=== PATIENT | female | born 1975 | race African-American/Black ===

== ENCOUNTER 2017-07-12 09:30 | Inpatient (IN) | payer OTHER ==
[2017-07-12 10:08] VITALS: BMI 47.5
[2017-07-12] MEDS: ELECTROLYTE-148 SOLN 1,000 ML IV SCH ×2 (10:30→10:52)
[2017-07-12] MEDS ORDERED: METHYLERGONOVINE MALEATE 0.2 MG/1 ML AMP IM PRN (10:36)
[2017-07-12] MEDS ORDERED: BENZOCAINE 28 GM HEMORRHOIDAL OINTMENT TP PRN (10:36)
[2017-07-12] MEDS ORDERED: WITCH HAZEL 50% (TUCKS) 40 PAD/JAR PAD TP PRN (10:36)
[2017-07-12] MEDS ORDERED: IBUPROFEN 800 MG/8 ML IJ IVPB PRN (10:36)
[2017-07-12] MEDS ORDERED: SENNOSIDES/DOCUSATE COMBO (SENNA PLUS) TABLET (UD) PO PRN (10:36)
[2017-07-12] MEDS ORDERED: BENZOCAINE 20% 57 GM BOTTLE TP PRN (10:36)
[2017-07-12] MEDS ORDERED: oxyCODONE HCL 5 MG TABLET PO PRN (10:36)
[2017-07-12] MEDS ORDERED: CITRIC ACID/SODIUM CITRATE 30 ML UNIT-DOSE CUP PO ONE (10:41)
--- NOTE | 2017-07-12 10:50 | HP ---
Past Medical History - Primary Care Physician PCP:: Pop Osorio - Admission Chief Complaint: 41yo P1 with at EGA 38w6d and prior MYOMECTOMY, and prior section, admitted for repeat section History of Present Illness: care complicated by: prior robotic myomectomy- no operative report available prior C/S x 1 maternal morbid obesity AMA uterine fibroids GBS Pos SAB x 2 History Source: Patient, Medical Record Limitations to Obtaining History: No Limitations - Past Medical History END MAKER: No: Alzheimer's, CVA, Dementia, Migraine, Multiple Sclerosis, Peripheral Neuropathy, Parkinson's, Seizure, Syncope, TIA, Vertigo, Other Cardiovascular: No: AFIB, Aneurysm, Aortic Insufficiency, Aortic Stenosis, CAD, CHF, Deep Vein Thrombosis, HTN, Hyperlipdemia, LA, Mitral Insufficiency, Mitral Stenosis, Murmur, Pulmonary Hypertension, Other Pulmonary: No: Asthma, Bronchitis, Cancer, COPD, O2 Dependent, Pneumonia, Previously Intubated, Pulmonary Embolus, Pulmonary Fibrosis, Sleep Apnea, Other Gastrointestinal: No: Ascites, Cancer, Constipation, Crohn's Disease, Diverticulitis, Diverticulosis, Esophageal Varices, Gastritis, GERD, GI Bleed, Hemorrhoids, Hiatal Hernia, Inflamatory Bowel Disease, Irritable Bowel Disease, Pancreatitis, Peptic Ulcer Disease, Ulcerative Colitis, Other Hepatobiliary: No: Cirrhosis, Cholelithiasis, Cholecystitis, Choledocholithiasis , Hepatitis A, Hepatitis B, Hepatitis C, Other Renal/: No: Renal Failure, Renal Inusuff, BPH, Cancer, Hematuria, Hemodialysis , Neurogenic Bladder, Renal Calculi, UTI, Other Reproductive: Yes: Fibroids ...: 4 ...Para: 1 ( sxn) ...Term: 1 ...: 0 ...Spon : 2 ...Induced : 0 ...Multiple Gestation: 0 ...LMP: 10/13/16 ... Weeks Gestation by Dates: 38.6 ...EDC by Dates: 07/20/17 ...EDC by Sono: 07/20/17 Heme/Onc: No: Anemia, B12 Deficiency, Bleeding Disorder, Cancer, Current Chemotherapy, Current Radiation Therapy, Hemochromatosis, Hypercoaguable State, Myeloproliferative Synd, Sickle Cell Disease, Sickle Cell Trait, Thrombocytopenia, Other Infectious Disease: No: AIDS, C-Diff, Herpes Zoster, HIV, MRSA, STD's, Tuberculosis, VREF, Other Psych: No: Addictions, Anxiety, Bipolar, Depression, Panic, Psychosis, Schizophrenia, Other Musculoskeletal: No: Bursitis, Chronic low back pain, Hemiparesis, Hemiplegia, Osteoarthritis, Paraplegia, Other Rheumatology: No: Fibromyalgia, Gout, Lupus, Rheumatoid Arthritis, Sarcoidosis, Vasculitis, Other ENT: No: Allergic Rhinitis, Sinusitis, Other Endocrine: Yes: Other (Obesity) Dermatology: No: Basal Cell, Cellulitis, Eczema, Melanoma, Psoriasis, Squamous Cell, Other - Past Surgical History Past Surgical History: Yes: Hx Myomectomy: Yes (Robotic 2011) Hx Transabdominal Cerclage: No - Smoking History Smoking history: Never smoked Have you smoked in the past 12 months: No - Alcohol/Substance Use Hx Alcohol Use: No History of Substance Use: reports: None - Social History Usual Living Arrangement: Yes: With Child ADL: Independent Occupation: welfare eligibility worker History of Recent Travel: No Home Medications - Allergies Allergies/Adverse Reactions: Allergies Allergy/AdvReac Type Severity Reaction Status Date / Time No Known Allergies Allergy Verified 07/12/17 10:08 - Home Medications Home Medications: Ambulatory Orders Pnv No.95/Ferrous Fum/Folic AC [ Vitamin Tablet] 1 each PO DAILY Family Disease History - Family Disease History Family Disease History: Diabetes: Father (HTN), CA: Grandparent (Pancreatic), Other: Father Review of Systems Findings/Remarks: Obese, not in labor - Review of Systems Constitutional: reports: No Symptoms Eyes: reports: No Symptoms HENT: reports: No Symptoms Neck: reports: No Symptoms Cardiovascular: reports: No Symptoms Respiratory: reports: No Symptoms Gastrointestinal: reports: No Symptoms Genitourinary: reports: No Symptoms Breasts: reports: No Symptoms Reported Musculoskeletal: reports: No Symptoms Integumentary: reports: No Symptoms Neurological: reports: No Symptoms Endocrine: reports: No Symptoms Hematology/Lymphatic: reports: No Symptoms Psychiatric: reports: No Symptoms Pain Intensity: 0 Physical Exam - Maternity Vital Signs: Vital Signs Temperature 98.0 F 07/12/17 09:30 Pulse Rate 94 H 07/12/17 09:30 Respiratory Rate 18 07/12/17 09:30 Blood Pressure 99/71 07/12/17 09:30 O2 Sat by Pulse Oximetry (%) Constitutional: Yes: No Distress, Calm, Obese Eyes: Yes: WNL, Conjunctiva Clear HENT: Yes: WNL, Atraumatic, Normocephalic Neck: Yes: WNL, Supple, Trachea Midline Cardiovascular: Yes: WNL, Regular Rate and Rhythm Lungs: Clear to auscultation, Normal air movement - Abdominal Exam/OB Fundal Height: 41 Number of Fetuses: Single Presentation: Vertex Contractions: No Heart Rate (range): 120 Heart Rate Location: Midline Category: I Accelerations: Uniform Decelerations: None - Vaginal Exam/OB Vaginal Bleediing: No Speculum Exam: No Presentation: Vertex/Position - Physical Exam Musculoskeletal: Yes: WNL Extremities: Yes: WNL Edema: Yes Edema: LLE: 1+, RLE: 1+ Integumentary: Yes: WNL Deep Tendon Reflex Grade: Normal +2 ...Motor Strength: WNL Psychiatric: Yes: WNL, Alert, Oriented Hemorrhage Risk Assessment - Risk Factors Medium Risk Factors: Yes: Prior , uterine surgery,or multiple laparotomies, Obesity (BMI >40) High Risk Factors: Yes: None Risk Score: 2 Risk Level: High Risk Imaging - Results Ultrasound: Report Reviewed Assessment/Plan 41yo P1 with at EGA 38w6d and prior myomectomy, and prior section, admitted for repeat section. is also complicated by AMA, obesity, and uterine fibroids. The decision was made to proceed with delivery by repeat C/S. We discussed the risks and benefits of C/S at length, including but not limited to scarring, pain, bleeding, infection, injury to underlying organs and structures, need for additional surgery to repair/treat any problems or complications, complications/injuries, etc. Increased risks due to co-morbidities were explained. The pt verbalized her understanding and requested to proceed with surgery. The pt is aware that all surgeries have risks and no guarantees can be provided.
[2017-07-12] MEDS ORDERED: morphine SULFATE/Preservative Free 0.5 MG/ML (1cc Syringe) ONE (11:48)
[2017-07-12] MEDS ORDERED: IBUPROFEN 600 MG TABLET (FP) PO PRN (12:00)
[2017-07-12] MEDS ORDERED: OXYTOCIN 20 UNITS in 0.9% NS 20 UNIT/1,000 ML INFUS.BAG IV ONE ×2 (12:20→13:24)
[2017-07-12] MEDS ORDERED: TUBERCULIN PPD 5 TU/0.1ML SYRINGE (IN PATIENT USE ONLY) ID ONE (13:00)
[2017-07-12] MEDS ORDERED: MIDAZOLAM HCL 2 MG/2 ML SINGLE DOSE VIAL ONE (13:02)
[2017-07-12] MEDS ORDERED: OXYTOCIN 10 UNITS/ML VIAL ONE ×2 (13:14)
[2017-07-12] MEDS ORDERED: PHENYLEPHRINE HCL 10 MG/1 ML SINGLE DOSE VIAL ONE (13:14)
[2017-07-12] MEDS ORDERED: ceFAZolin SODIUM 1 GM VIAL ONE ×2 (13:14)
[2017-07-12 13:23] LABS: ARTERIAL BLOOD GAS PCO2 72.1 mmHg (35-45); ARTERIAL BLOOD GAS PO2 5.8 mmHg (80-100); ARTERIAL BLOOD GAS pH 7.22 (7.35-7.45)
[2017-07-12 13:24] LABS: ARTERIAL BLD GAS O2 SATURATION 3.7 % (90-98.9)
[2017-07-12 13:25] LABS: VENOUS PC02 56.3 mmHg (38-52); VENOUS PO2 16.9 mmHg (28-48)
[2017-07-12 13:26] LABS: VENOUS PH 7.29 (7.32-7.42)
[2017-07-12] MEDS: OXYTOCIN 20 UNITS in 0.9% NS 20 UNIT/1,000 ML INFUS.BAG IV SCH (13:30)
[2017-07-12] MEDS ORDERED: IBUPROFEN 800 MG/8 ML IJ IVPB ONE (14:27)
[2017-07-12] MEDS ORDERED: ceFAZolin 2 GRAM PREMIX BAG IVPB SCH (18:00)
[2017-07-12] MEDS: CEFAZOLIN 2 GM/D5W 2 GM/50 ML ML IVPB SCH (19:22)
[2017-07-13] MEDS: CEFAZOLIN 2 GM/D5W 2 GM/50 ML ML IVPB SCH ×2 (03:01→09:30)
[2017-07-13] MEDS: IBUPROFEN 600 MG TABLET (FP) PO PRN ×2 (08:31→21:39)
[2017-07-13] MEDS: ACETAMINOPHEN 325 MG TABLET (FP) PO PRN ×2 (08:35→21:39)
[2017-07-13] MEDS: SIMETHICONE 80 MG TAB.CHEW (FP) PO PRN ×2 (08:35→21:38)
--- NOTE | 2017-07-13 08:40 | PN ---
Post Progress Note - Subjective Subjective: 41 yo P2 now, no complains, pain adequately controlled + void, + flatus, tolarating food, ambulated, now in bed, breast feeding Post Day: 1 Type of Delivery: Repeat C/S Vital Signs: Vital Signs Temperature 98.6 F 07/13/17 06:00 Pulse Rate 99 H 07/13/17 06:00 Respiratory Rate 18 07/13/17 06:00 Blood Pressure 108/61 07/13/17 06:00 O2 Sat by Pulse Oximetry (%) 100 07/12/17 21:00 Breast Exam: Yes: Soft Uterus: Yes: Fundus Firm Incision: Yes: Dressing dry and intact Abdomen/GI: Yes: Abdomen soft, Passing flatus, Tolerating PO Lochia: Yes: Rubra Lochia, amount: Small Extremities: Yes: Calves non-tender Activity: Other (in bed) Assessment/Plan 41yo P 2 now s/p Repeat c/section vss, Afibrile Doing well will follow CBC Encoraged to ambulate, risk of PE/DVT discussed cont. Lovenox for DVT prophylaxis Expressed understanding Cont routine care
[2017-07-13 09:15] LABS: BASO % 0.4 % (0-2.0); EOS % 0.5 % (0-4.5); HEMOGLOBIN 9.8 GM/dL (10.7-15.3); LYMPH % 12.6 % (8-40); MCH 31.2 pg (25.7-33.7); MCHC 33.8 g/dl (32.0-36.0); MEAN CELL VOLUME 92.4 fl (80-96); MEAN PLT VOLUME 9.6 fl (7.5-11.1); MONO % 8.2 % (3.8-10.2); NEUT % 78.3 % (42.8-82.8); PLATELET COUNT 190 K/MM3 (134-434); RBC 3.13 M/mm3 (3.60-5.2); RDW 13.6 % (11.6-15.6)
[2017-07-13] MEDS: ENOXAPARIN NA (PORCINE) 40 MG/0.4 ML DISP.SYRIN SQ SCH (09:30)
[2017-07-13 09:33] LABS: ANION GAP 7 (8-16); BLOOD UREA NITROGEN 9 mg/dL (7-18); CALCIUM 7.7 mg/dL (8.5-10.1); CHLORIDE 106 mmol/L (98-107); CO2 25 mmol/L (21-32); CREATININE 0.8 mg/dL (0.55-1.02); GLUCOSE,RANDOM 100 mg/dL (74-106); POTASSIUM 3.9 mmol/L (3.5-5.1); SODIUM 138 mmol/L (136-145)
[2017-07-13] MEDS: PRENATAL VITAMINS W/ FOLIC ACID TABLET (FP) PO SCH (10:27)
[2017-07-13] MEDS ORDERED: BISACODYL 10 MG SUPP.RECT RC PRN (10:36)
--- NOTE | 2017-07-13 12:23 | PN ---
Progress Note, Physician Chief Complaint: day #1 s/p csection - Current Medication List Current Medications: Active Medications Acetaminophen (Tylenol -) 650 mg PO Q4H PRN PRN Reason: PAIN LEVEL 1-5 Last Admin: 07/13/17 08:35 Dose: 650 mg Benzocaine (Americaine 20% [place] -) 1 spray TP PRN PRN PRN Reason: Pain - Topical Benzocaine (Americaine Ointment -) 1 applic TP PRN PRN PRN Reason: Pain - Topical Bisacodyl (Dulcolax Suppository -) 10 mg RC PRN PRN PRN Reason: CONSTIPATION Diphenhydramine HCl (Benadryl Injection -) 25 mg IVPUSH Q4H PRN PRN Reason: Pruritis Enoxaparin Sodium (Lovenox -) 40 mg SQ DAILY FREDI Last Admin: 07/13/17 09:30 Dose: 40 mg Oxytocin/Sodium Chloride (Normal Saline+20 Units Oxytocin -) 20 unit in 1,000 mls @ 125 mls/hr IV ASDIR FREDI Last Admin: 07/12/17 13:30 Dose: 125 mls/hr Parenteral Electrolytes (Plasma-Lyte 148 -) 1,000 mls @ 125 mls/hr IV ASDIR FREDI Last Admin: 07/12/17 10:30 Dose: 125 mls/hr Parenteral Electrolytes (Plasma-Lyte 148 -) 1,000 mls @ 125 mls/hr IV ASDIR FREDI Last Admin: 07/12/17 10:52 Dose: Not Given Cefazolin Sodium/Dextrose (Ancef 2 Gm Premixed Ivpb -) 2 gm in 50 mls @ 100 mls /hr IVPB Q8H-IV FREDI PRN Reason: Protocol Stop: 07/13/17 17:59 Last Admin: 07/13/17 09:30 Dose: 100 mls/hr Ibuprofen (Motrin -) 600 mg PO Q4H PRN PRN Reason: PAIN LEVEL 1 - 3 Last Admin: 07/13/17 08:31 Dose: 600 mg Ibuprofen (Caldolor Injection -) 800 mg IVPB Q8H PRN PRN Reason: PAIN Last Admin: 07/12/17 14:30 Dose: 800 mg Ibuprofen (Motrin -) 600 mg PO Q4H PRN PRN Reason: PAIN LEVEL 1-5 Methylergonovine Maleate (Methergine Injection -) 0.2 mg IM Q4H PRN PRN Reason: Excessive Bleeding (L&D) Oxycodone HCl (Roxicodone -) 5 mg PO Q4H PRN PRN Reason: PAIN LEVEL 4 - 6 Multivit/Folic Acid/Iron ( Vitamins (Sjr) -) 1 tab PO DAILY FREDI Last Admin: 07/13/17 10:27 Dose: Not Given Senna/Docusate Sodium (Pericolace -) 2 tablet PO HS PRN PRN Reason: CONSTIPATION Simethicone (Mylicon -) 80 mg PO Q4H PRN PRN Reason: GAS Last Admin: 07/13/17 08:35 Dose: 80 mg Witch Rosa/Glycerin (Tucks Pads -) 1 pad TP PRN PRN PRN Reason: Pain - Topical - Objective Vital Signs: Vital Signs Temperature 99.1 F 07/13/17 08:00 Pulse Rate 97 H 07/13/17 08:00 Respiratory Rate 20 07/13/17 12:00 Blood Pressure 125/72 07/13/17 08:00 O2 Sat by Pulse Oximetry (%) 100 07/12/17 21:00 Labs: CBC, BMP 07/13/17 08:00 07/13/17 08:00 Assessment/Plan doing well after spinal for csection. No BERMEO, back pain, pain is well controlled
[2017-07-13] MEDS: diphenhydrAMINE HCL 25 MG CAPSULE (FP) PO PRN ×2 (14:51→21:38)
[2017-07-14] MEDS: SIMETHICONE 80 MG TAB.CHEW (FP) PO PRN ×3 (03:44→21:03)
[2017-07-14] MEDS: IBUPROFEN 600 MG TABLET (FP) PO PRN ×3 (03:45→21:04)
[2017-07-14] MEDS: ACETAMINOPHEN 325 MG TABLET (FP) PO PRN ×3 (03:46→21:05)
[2017-07-14] MEDS: PRENATAL VITAMINS W/ FOLIC ACID TABLET (FP) PO SCH (10:39)
[2017-07-14] MEDS: ENOXAPARIN NA (PORCINE) 40 MG/0.4 ML DISP.SYRIN SQ SCH (10:39)
[2017-07-14] MEDS: ELECTROLYTE-148 SOLN 1,000 ML IV SCH ×2 (14:49)
[2017-07-14] MEDS: OXYTOCIN 20 UNITS in 0.9% NS 20 UNIT/1,000 ML INFUS.BAG IV SCH (14:49)
--- NOTE | 2017-07-14 17:18 | OP ---
DATE OF OPERATION: 07/12/2017 PREOPERATIVE DIAGNOSIS: A 41-year-old female with with estimated gestational age of 36 weeks and 6 days. Previous uterine myomectomy, previous section, maternal obesity complicating care, advanced maternal age, uterine fibroids. POSTOPERATIVE DIAGNOSIS: A 41-year-old female with with estimated gestational age of 36 weeks and 6 days. Previous uterine myomectomy, previous section, maternal obesity complicating care, advanced maternal age, uterine fibroids. Delivered. PROCEDURE: Repeat low transverse section via Pfannenstiel skin incision. SURGEON: Pop Osorio M.D. SECOND OFFICER: Miley Snell M.D. ANESTHESIOLOGIST: Deshaun Moyer M.D. ANESTHESIA: Spinal. COMPLICATIONS: None. ESTIMATED BLOOD LOSS: 800 mL. INTRAVENOUS FLUIDS: 2300 mL of crystalloids. URINE OUTPUT: 150 mL of clear urine at the end of the procedure. PATHOLOGY: Placenta. FINDINGS: Live baby girl in vertex presentation. No meconium in amniotic fluids. Upon entry of the abdomen multiple thick dense adhesions were noted between the uterus, omentum, and anterior abdominal wall. Multiple fibroids were also noted throughout the uterus. Some fibroids were subserosal and multiple other fibroids were intramural. Some fibroids were also noted in the lower uterine segment and uterine body. The bladder was very low down and the uterus was larger than expected for gestational age due to fibroids. PROCEDURE: The patient was met preoperatively. Risks, benefits, and alternatives of surgery were discussed in detail. All questions were answered. The patient was then brought to the OR with the IV running. She was placed on the surgical table in a sitting position. The spinal anesthesia was achieved without difficulty. The patient was then placed on a surgical table in the supine position with leftward tilt. The Baca catheter was inserted and left to drain to gravity. The patient was then prepped and draped in the usual sterile fashion. A timeout procedure was conducted as per standard protocol. The surgeon then proceeded with the operation. A Pfannenstiel skin incision was made along the prior scar. The incision was carried down to the level of fascia. The fascia was incised in the midline, and the incision was extended bilaterally using Boyd scissors. The fascia was then dissected away from the rectus muscles superiorly and inferiorly. The rectus muscles were in the midline using sharp dissection. The peritoneum was identified and entered sharply. The peritoneal incision was then extended superiorly and inferiorly with Metzenbaum scissors. There were multiple dense adhesions between the uterus and the anterior abdominal wall as well as omentum. The uterine adhesions were dissected, clamped, and transected. The uterine adhesions were then suture ligated with good hemostasis. Once enough space was freed up for uterine incision, an Ashish O retractor was inserted exposing an adequate operative field. The uterus was then incised in the lower uterine segment. The incision was extended bilaterally using bandage scissors. The amniotic sac was ruptured and clear amniotic fluid was noted. The baby was then delivered from vertex presentation. The baby was crying spontaneously. The umbilical cord was clamped and cut. The baby was handed to the waiting nurse. The placenta was delivered manually and without complications. The uterine cavity was cleared of all clots and debris using laparotomy laps. The uterine incision was then repaired in 2 layers using a 0 Biosyn suture. Once the uterine incision was closed, good hemostasis was confirmed. The uterus was noted to be well contracted. The operative field was irrigated using copious amounts of normal saline. Once the saline was aspirated, good hemostasis was confirmed. The abdominal peritoneum was then closed using a 2-0 chromic suture in the running stitch. The rectus muscles were approximated using several interrupted 0 chromic sutures. The fascia was closed using a 0 Vicryl suture in 2 segments. Good hemostasis was noted. Good approximation was noted. The subcutaneous adipose tissues were also closed using several layers of interrupted 0 Vicryl sutures to eliminate space. The skin was then closed using rolando. The sponge, lap, and needle counts were correct. The patient was transferred to recovery room in stable condition. Kevin [id number]
--- NOTE | 2017-07-14 18:28 | PN ---
Post Progress Note - Subjective Subjective: No complaints Post Day: 2 Type of Delivery: Repeat C/S Vital Signs: Vital Signs Temperature 98.3 F 07/14/17 09:14 Pulse Rate 85 07/14/17 09:14 Respiratory Rate 18 07/14/17 09:14 Blood Pressure 110/62 07/14/17 09:14 O2 Sat by Pulse Oximetry (%) 100 07/12/17 21:00 Breast Exam: Yes: Soft Uterus: Yes: Fundus Firm, Fundus below umbilicus, Non-tender Incision: Yes: Jessica intact Abdomen/GI: Yes: Abdomen soft Lochia: Yes: Rubra Lochia, amount: Small Extremities: Yes: Calves non-tender Perineum: Yes: Intact Activity: Ambulating - Labs Labs: CBC WBC 8.0 K/mm3 (4.0-10.0) 07/13/17 08:00 RBC 3.13 M/mm3 (3.60-5.2) L 07/13/17 08:00 Hgb 9.8 GM/dL (10.7-15.3) L D 07/13/17 08:00 Hct 29.0 % (32.4-45.2) L 07/13/17 08:00 MCV 92.4 fl (80-96) 07/13/17 08:00 MCH 31.2 pg (25.7-33.7) 07/13/17 08:00 MCHC 33.8 g/dl (32.0-36.0) 07/13/17 08:00 RDW 13.6 % (11.6-15.6) 07/13/17 08:00 Plt Count 190 K/MM3 (134-434) 07/13/17 08:00 MPV 9.6 fl (7.5-11.1) D 07/13/17 08:00 Neutrophils % 78.3 % (42.8-82.8) 07/13/17 08:00 Lymphocytes % 12.6 % (8-40) D 07/13/17 08:00 Monocytes % 8.2 % (3.8-10.2) 07/13/17 08:00 Eosinophils % 0.5 % (0-4.5) 07/13/17 08:00 Basophils % 0.4 % (0-2.0) 07/13/17 08:00 Assessment/Plan 41yo P2 s/p repeat LT C/S, doing well stable, afebrile. care instructions reviewed. Continue routine postop care. Ambulation encouraged.
[2017-07-15] MEDS: SIMETHICONE 80 MG TAB.CHEW (FP) PO PRN ×3 (01:17→13:45)
[2017-07-15] MEDS: IBUPROFEN 600 MG TABLET (FP) PO PRN ×3 (01:18→13:45)
--- NOTE | 2017-07-15 08:14 | PN ---
Post Progress Note - Subjective Subjective: No complaints Post Day: 3 Type of Delivery: Repeat C/S Vital Signs: Vital Signs Temperature 98.7 F 07/14/17 22:00 Pulse Rate 100 H 07/14/17 22:00 Respiratory Rate 18 07/14/17 22:00 Blood Pressure 132/70 07/14/17 22:00 O2 Sat by Pulse Oximetry (%) 100 07/12/17 21:00 Breast Exam: Yes: Soft Uterus: Yes: Fundus Firm, Fundus below umbilicus, Non-tender Incision: Yes: Dressing dry and intact, Jessica intact Abdomen/GI: Yes: Abdomen soft, Passing flatus, Tolerating PO Lochia: Yes: Rubra Lochia, amount: Small Extremities: Yes: Calves non-tender Perineum: Yes: Intact Activity: Ambulating - Labs Labs: CBC WBC 8.0 K/mm3 (4.0-10.0) 07/13/17 08:00 RBC 3.13 M/mm3 (3.60-5.2) L 07/13/17 08:00 Hgb 9.8 GM/dL (10.7-15.3) L D 07/13/17 08:00 Hct 29.0 % (32.4-45.2) L 07/13/17 08:00 MCV 92.4 fl (80-96) 07/13/17 08:00 MCH 31.2 pg (25.7-33.7) 07/13/17 08:00 MCHC 33.8 g/dl (32.0-36.0) 07/13/17 08:00 RDW 13.6 % (11.6-15.6) 07/13/17 08:00 Plt Count 190 K/MM3 (134-434) 07/13/17 08:00 MPV 9.6 fl (7.5-11.1) D 07/13/17 08:00 Neutrophils % 78.3 % (42.8-82.8) 07/13/17 08:00 Lymphocytes % 12.6 % (8-40) D 07/13/17 08:00 Monocytes % 8.2 % (3.8-10.2) 07/13/17 08:00 Eosinophils % 0.5 % (0-4.5) 07/13/17 08:00 Basophils % 0.4 % (0-2.0) 07/13/17 08:00
--- NOTE | 2017-07-15 08:17 | DS ---
Physical Exam-WALLPAPER INSTALLER Vital Signs: Vital Signs Temperature 98.7 F 07/14/17 22:00 Pulse Rate 100 H 07/14/17 22:00 Respiratory Rate 18 07/14/17 22:00 Blood Pressure 132/70 07/14/17 22:00 O2 Sat by Pulse Oximetry (%) 100 07/12/17 21:00 Constitutional: Yes: Well Nourished, No Distress, Calm Eyes: Yes: WNL, Conjunctiva Clear HENT: Yes: WNL, Atraumatic, Normocephalic Neck: Yes: WNL, Supple, Trachea Midline Cardiovascular: Yes: WNL, Regular Rate and Rhythm Respiratory: Yes: WNL, Regular, CTA Bilaterally Gastrointestinal: Yes: Normal Bowel Sounds, Soft, Abdomen, Obese ...Rectal Exam: Yes: Deferred Renal/: Yes: WNL External Genitalia: Yes: Normal Internal Exam Deferred: Yes ....Post : Yes: Uterus firm, Uterus non-tender, Slight lochia rubra Breast(s): Yes: WNL Musculoskeletal: Yes: WNL Extremities: Yes: WNL Edema: LLE: Trace, RLE: Trace Integumentary: Yes: WNL Wound/Incision: Yes: Clean/Dry, Well Approximated, Jessica Intact Neurological: Yes: WNL, Alert, Oriented ...Motor Strength: WNL Psychiatric: Yes: WNL, Alert, Oriented Labs: CBC, BMP 07/13/17 08:00 07/13/17 08:00 Delivery - Delivery Section: Repeat, Low Flap Transverse Type of Anesthesia: Spinal Episiotomy/Laceration: None EBL (cc): 800 Delivery, Single - Stages of Labor Date of Delivery: 07/12/17 Time of Delivery: 12:45 Time Placenta Delivered: 12:46 Placenta: Yes: Manual Removal, Normal Configuration - 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 You may walk unlimited michele of and climb stairs. You may resume driving the car when you feel safe and comfortable behind the wheel. No sexual activity as instructed. Wound care If you have a bandage, leave it on, and keep dry for 48-72 hours. After that time discard the outer bandage. If they are tapes on the skin under the out of bandage leave them in place. They will peel off in the next 7 to 10 days. Do Not Peel them off. You may shower the day after surgery. If there are tapes present on the skin, you may shower over them. Diet There are no dietary restrictions. Eat healthy, high-fiber foods. Drink 6 to 8 glasses of liquid each day. This will assist in keeping your bowels are regular. Pain management You may take Tylenol or acetaminophen or Ibuprofen (for example, Motrin, Advil etc.) from my pain prescription medication is ordered should be taken as prescribed for moderate to severe pain. Call MD for any of the following: Severe pain not relieved by medication Fever of 101 or higher Excessive bleeding or drainage on dressing Inability to urinate Referrals: Pop Osorio MD [Staff Physician] - Disposition: HOME - Home Medications Comprehensive Discharge Medication List: Ambulatory Orders Pnv No.95/Ferrous Fum/Folic AC [ Vitamin Tablet] 1 each PO DAILY
[2017-07-15] MEDS: ACETAMINOPHEN 325 MG TABLET (FP) PO PRN ×2 (08:39→13:46)
[2017-07-15 08:53] LABS: BASO % 0.3 % (0-2.0); HEMATOCRIT 26.9 % (32.4-45.2); LYMPH % 18.7 % (8-40); MCH 31.1 pg (25.7-33.7); MCHC 33.4 g/dl (32.0-36.0); MEAN PLT VOLUME 9.7 fl (7.5-11.1); MONO % 9.7 % (3.8-10.2); NEUT % 68.3 % (42.8-82.8); PLATELET COUNT 209 K/MM3 (134-434); RDW 13.7 % (11.6-15.6); WHITE BLOOD COUNT 7.4 K/mm3 (4.0-10.0)
[2017-07-15] MEDS: ENOXAPARIN NA (PORCINE) 40 MG/0.4 ML DISP.SYRIN SQ SCH (10:00)
[2017-07-15] MEDS: PRENATAL VITAMINS W/ FOLIC ACID TABLET (FP) PO SCH (10:00)
[2017-07-15 11:04] VITALS: BP 129/81; PULSE 80; TEMP 97.8
[2017-07-15] MEDS: ELECTROLYTE-148 SOLN 1,000 ML IV SCH (11:29)
[2017-07-15] MEDS: OXYTOCIN 20 UNITS in 0.9% NS 20 UNIT/1,000 ML INFUS.BAG IV SCH (11:29)
--- NOTE | 2017-07-15 14:20 | PATH ---
Surgical Pathology Report Patient Name: NI MOODY Med. Rec. 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 Specimen(s) Received PLACENTA Clinical History 38.6 weeks, repeat section, previous myomectomy, fibroids this gestation, advanced maternal age. Previous surgery: 02/2013, myomectomy 07/2011 Final Diagnosis PLACENTA, SECTION: 451 g THIRD TRIMESTER PLACENTA WITH TRIVASCULAR UMBILICAL CORD AND UNREMARKABLE PLACENTAL MEMBRANES. Electronically Signed Kaitlynn Gottlieb M.D. Gross Description The specimen is received fresh labeled placenta and is a 451 gram, 15 x 13 x 2.5 cm. placenta with attached membranes and umbilical cord. The attached membranes are veliz and insert marginally. The umbilical cord measures 10 cm. in length and averages 1.2 cm. in diameter. The cord inserts eccentrically, 6 cm. to the nearest margin. No true knots or strictures are identified. Cut surface of the umbilical cord reveals 3 vessels. The surface is toussaint-blue with minimal fibrin deposition and appropriate caliber vessels. The maternal surface is red-brown with focal defects. Sectioning reveals red-brown, spongy parenchyma. No lesions are identified. [employer] Laminator sections are submitted in three cassettes as follows: 1- membrane rolls and umbilical cord; 2-3- full thickness sections of placenta sandrasilverio/07/14/2017
== END 2017-07-15 14:50 | disposition home or self-care (01) | DRG 765 ==
LOC: JLDR 09:30 → J3W 16:30
PROVIDERS: ADMIT Obstetrics & Gynecology; ATTEND Obstetrics & Gynecology
PROC: 10D00Z1 Extraction of Products of Conception, Low, Open Approach (ICD-10-PCS; principal; 2017-07-12)
DX: O34.219 Maternal care for unspecified type scar from previous cesarean delivery (principal); Z68.42 Body mass index [BMI] 45.0-49.9, adult; O99.214 Obesity complicating childbirth; E66.01 Morbid (severe) obesity due to excess calories; O34.10 Maternal care for benign tumor of corpus uteri, unspecified trimester; Z3A.36 36 weeks gestation of pregnancy; Z37.0 Single live birth
CPT/HCPCS: 36415; 36600; 80048; 82803; 85025; 88307-TC